=== PATIENT | male | born 1985 | race Caucasian/White ===

== ENCOUNTER 2018-12-26 19:32 | Emergency (ER) | payer BC ==
[2018-12-26] MEDS ORDERED: Amoxicillin/Clavulanate K 875-125 MG Tab PO STA (19:53)
--- NOTE | 2018-12-26 20:27 | EDM.PDOC ---
ED HPI GENERAL MEDICAL PROBLEM - General Chief Complaint: General Stated Complaint: POSSIBLE INFECTION Time Seen by Provider: 12/26/18 20:24 Source of Information: Reports: Patient History Limitations: Reports: No Limitations - History of Present Illness INITIAL COMMENTS - FREE TEXT/NARRATIVE: 33 y.o.w.m was see in the clinic today where he had a surgical procedure -boil lanced-at his left 2nd and 3rd finger. He was given Bactrim DS in order to cover MRSA. Pt noticed this pm. his left hand is swollen and a red streak is going up his right arm. FROM of left wrist arm, no Trauma. No N/V/D no SOB or any other acute med issues. BP 129/80 RR 18 Pulse ox 100% on RA Pulse 82 temp 36.8 Onset Date: 12/26/18 Onset Time: 07:00 Duration: Hour(s):, Getting Worse Location: Reports: Upper Extremity, Right Quality: Reports: Dull Severity: Mild Improves with: Reports: Medication Worsens with: Reports: Movement Context: Reports: Other (surgical procedure right hand this am) Associated Symptoms: Reports: Rash (right forearm) Right index finger Pain Score (Numeric/FACES): 4 - Related Data Allergies Allergy/AdvReac Type Severity Reaction Status Date / Time Latex, Natural Rubber Allergy Swelling Verified 12/26/18 19:42 Home Meds: Home Meds Amoxicillin/Potassium Clav [Augmentin 875-125 Tablet] 1 each PO BID #20 tablet 12/26/18 [Rx] Fluticasone/Salmeterol [Advair 250-50 Diskus] 1 puff INH ASDIRECTED 12/26/18 [ History] Sulfamethoxazole/Trimethoprim [Bactrim Ds Tablet] 1 each PO BID 12/26/18 [ History] Past Medical History Psychiatric History: Reports: Anxiety, Depression - Past Surgical History Male Surgical History: Reports: Mastectomy Social & Family History - Tobacco Use Smoking Status *Q: Never Smoker - Caffeine Use Caffeine Use: Reports: Energy Drinks - Recreational Drug Use Recreational Drug Use: No ED ROS GENERAL - Review of Systems Review Of Systems: See Below Constitutional: Reports: No Symptoms HEENT: Reports: No Symptoms Respiratory: Reports: No Symptoms Cardiovascular: Reports: No Symptoms Endocrine: Reports: No Symptoms GI/Abdominal: Reports: No Symptoms : Reports: No Symptoms Musculoskeletal: Reports: No Symptoms Skin: Reports: Rash (right forearm) Neurological: Reports: No Symptoms Psychiatric: Reports: No Symptoms Hematologic/Lymphatic: Reports: No Symptoms Immunologic: Reports: No Symptoms ED EXAM, GENERAL - Physical Exam Exam: See Below Exam Limited By: No Limitations General Appearance: Alert, WD/WN, Mild Distress Eye Exam: Bilateral Eye: Normal Inspection Ears: Normal External Exam Ear Exam: Bilateral Ear: Auricle Normal Nose: Normal Inspection, Normal Mucosa, No Blood Throat/Mouth: Normal Inspection, Normal Lips, Normal Teeth, Normal Voice, No Airway Compromise Head: Atraumatic, Normocephalic Neck: Normal Inspection, Supple, Non-Tender, Full Range of Motion Respiratory/Chest: No Respiratory Distress, Lungs Clear, Normal Breath Sounds, No Accessory Muscle Use, Chest Non-Tender Cardiovascular: Normal Peripheral Pulses, Regular Rate, Rhythm, No Edema, No Gallop, No JVD, No Murmur, No Rub Peripheral Pulses: 1+: Carotid (R) GI/Abdominal: Normal Bowel Sounds, Soft, Non-Tender, No Organomegaly, No Abnormal Bruit, No Mass, Pelvis Stable (Male) Exam: Deferred Rectal (Males) Exam: Deferred Back Exam: Normal Inspection, Full Range of Motion Extremities: Normal Range of Motion Neurological: Alert, Oriented, CN II-XII Intact, Normal Cognition Psychiatric: Normal Affect, Normal Mood Skin Exam: Warm, Dry, Rash (right forearm) Lymphatic: No Adenopathy Course - Vital Signs Text/Narrative:: 33 y.o.w.m was see in the clinic today where he had a surgical procedure -boil lanced-at his left 2nd and 3rd finger. He was given Bactrim DS in order to cover MRSA. Pt noticed this pm. his left hand is swollen and a red streak is going up his right arm. FROM of left wrist arm, no Trauma. No N/V/D no SOB or any other acute med issues. BP 129/80 RR 18 Pulse ox 100% on RA Pulse 82 temp 36.8 PE: WNWD W M with a read streak going up his right forearm Labs: CBC, BMP all nl. Blood Cx results are pending Imaging: Not indicated Impression: Left arm cellulitis Tx: Augmentin po Reexam: Improved Plan: D/C with instructions Last Recorded V/S: Last Vital Signs Temp 36.7 C 12/26/18 20:30 Pulse 87 12/26/18 20:30 Resp 18 12/26/18 20:30 BP 132/88 12/26/18 20:30 Pulse Ox 95 12/26/18 20:30 - Orders/Labs/Meds Orders: Active Orders 24 hr Category Date Time Status CULTURE BLOOD [BC] Urgent Lab 12/26/18 20:11 Received CULTURE BLOOD [BC] Urgent Lab 12/26/18 20:19 Received Blood Culture x2 Reflex Set [OM.PC] Urgent Oth 12/26/18 19:52 Ordered Labs: Laboratory Tests 12/26/18 12/26/18 Range/Units 20:11 20:11 WBC 11.5 (4.5-12.0) X10-3/uL RBC 5.26 (4.30-5.75) x10(6)uL Hgb 16.1 (13.5-17.8) g/dL Hct 47.0 (30.0-51.3) % MCV 89.3 (80-96) fL MCH 30.7 (27.7-33.6) pg MCHC 34.3 (32.2-35.4) g/dL RDW 12.7 (11.5-15.5) % Plt Count 295 (125-369) X10(3)uL MPV 8.0 (7.4-10.4) fL Neut % (Auto) 73.5 (46-82) % Lymph % (Auto) 16.4 (13-37) % [place] % (Auto) 7.2 (4-12) % Eos % (Auto) 2 (1.0-5.0) % Baso % (Auto) 1 (0-2) % Neut # (Auto) 8.5 H (1.6-8.3) # Lymph # (Auto) 1.9 (0.6-5.0) # [place] # (Auto) 0.8 (0.0-1.3) # Eos # (Auto) 0.2 (0.0-0.8) # Baso # (Auto) 0.1 (0.0-0.2) # Sodium 139 (135-145) mmol/L Potassium 3.6 (3.5-5.3) mmol/L Chloride 103 (100-110) mmol/L Carbon Dioxide 28 (21-32) mmol/L BUN 9 (7-18) mg/dL Creatinine 1.0 (0.70-1.30) mg/dL Est Cr Clr Drug Dosing 107.03 mL/min Estimated GFR (MDRD) > 60 (>60) BUN/Creatinine Ratio 9.0 (9-20) Glucose 105 (80-116) mg/dL Calcium 8.9 (8.6-10.2) mg/dL Meds: Medications Discontinued Medications Generic Name Dose Route Start Last Admin Trade Name Graciela PRN Reason Stop Dose Admin Amoxicillin/Clavulanate Potassium 1 tab 12/26/18 19:53 12/26/18 20:04 Augmentin 875 Mg/125 Mg PO 12/26/18 19:54 1 tab ONETIME STA Administration Departure - Departure Time of Disposition: 20:25 Disposition: Home, Self-Care 01 Condition: Good Clinical Impression: Cellulitis Qualifiers: Site of cellulitis of extremity: upper extremity Laterality: right - Discharge Information Prescriptions: Amoxicillin/Potassium Clav [Augmentin 875-125 Tablet] 1 each PO BID #20 tablet Instructions: Cellulitis, Adult, [id number] Referrals: Patricia Palm PA-C [Primary Care Provider] - Forms: ED Department Discharge Additional Instructions: Please cont the Bactrim DS Abx, take Augmentin in addition as prescribed, please f/u, come back if your symptoms get worse acutely. - My Orders Last 24 Hours: My Active Orders 12/26/18 19:52 Blood Culture x2 Reflex Set [OM.PC] Urgent 12/26/18 20:11 CULTURE BLOOD [BC] Urgent 12/26/18 20:19 CULTURE BLOOD [BC] Urgent - Assessment/Plan Last 24 Hours: My Active Orders 12/26/18 19:52 Blood Culture x2 Reflex Set [OM.PC] Urgent 12/26/18 20:11 CULTURE BLOOD [BC] Urgent 12/26/18 20:19 CULTURE BLOOD [BC] Urgent
== END 2018-12-26 20:32 | disposition home or self-care (01) ==
LOC: FB.ED 19:32
DX: L03.113 Cellulitis of right upper limb (principal); Z91.040 Latex allergy status
CPT/HCPCS: 36415; 80048; 85025; 87040; 99283; A9270

== ENCOUNTER 2019-03-22 00:45 | Emergency (ER) | payer BC ==
[2019-03-22] MEDS ORDERED: Acetaminophen/HYDROcodone 325-5 MG Tab PO ONE (00:46)
[2019-03-22] MEDS ORDERED: Cyclobenzaprine 10 MG Tab PO ONE (00:46)
--- NOTE | 2019-03-22 01:01 | EDM.PDOC ---
ED HPI GENERAL MEDICAL PROBLEM - General Stated Complaint: BACK PAIN Time Seen by Provider: 03/22/19 01:00 Source of Information: Reports: Patient History Limitations: Reports: No Limitations - History of Present Illness INITIAL COMMENTS - FREE TEXT/NARRATIVE: 33-year-old male with intermittent problems with left sided lumbar radiculopathy for the past 2-3 years. He has had intermittent mild exacerbations of this over the past 2-3 years and has done physical therapy and chiropractic cares for this with good results. He had an exacerbation of this radiculopathy in the beginning of January 2019 and had another exacerbation around . For the past 2 weeks he has been doing chiropractic cares and physical therapy with good progress and control of his pain. However, over the past 3 days he has had a worsening of this pain. There was really no inciting event other than he turned over in bed and it seemed to worsen after this. The pain is a tingling numb pain was sharp and shooting pains down his entire left leg. He currently rates the pain as an 8-10/10. He has been unable to find a comfortable position or rest secondary to the pain. He has been taking ibuprofen and Tylenol for the pain without relief. He has tried stretching without relief. He also feels a tightness in his lower back where the pain seems to emanate go down his leg. He has had no fevers or chills. He has had no bowel or bladder control problems. He reports that he feels that his left leg is intermittently weak. He has no abdominal pain. He did have some nausea associated with the pain earlier but no vomiting. There are no other associated signs or symptoms. There are no other modifying factors. Onset: Other (Problems for some time worsening over the past 5 days.) Duration: Getting Worse Location: Reports: Back, Lower Extremity, Left Quality: Reports: Burning, Sharp, Other (Tingling) Severity: Severe Improves with: Reports: None Worsens with: Reports: Other (Straight leg raising), Movement Context: Reports: Other (As above) Associated Symptoms: Reports: No Other Symptoms (Except as above) Treatments GAMING DEPARTMENT HEAD: Reports: Acetaminophen, NSAIDS - Related Data Allergies Allergy/AdvReac Type Severity Reaction Status Date / Time Latex, Natural Rubber Allergy Swelling Verified 03/22/19 01:16 Home Meds: Home Meds Amoxicillin/Potassium Clav [Augmentin 875-125 Tablet] 1 each PO BID #20 tablet 12/26/18 [Rx] Fluticasone/Salmeterol [Advair 250-50 Diskus] 1 puff INH ASDIRECTED 12/26/18 [ History] Sulfamethoxazole/Trimethoprim [Bactrim Ds Tablet] 1 each PO BID 12/26/18 [ History] Albuterol Sulfate [Proair Hfa] 03/22/19 [History] Cyclobenzaprine HCl 03/22/19 [History] FLUoxetine HCl [Fluoxetine HCl] 03/22/19 [History] Fluticasone/Salmeterol [Advair 250-50 Diskus] 03/22/19 [History] Hydrocodone/Acetaminophen [Earle 5-325 Tablet] 1 - 2 tab PO Q6H PRN #6 tablet [Rx] methylPREDNISolone [Medrol Dose Pack] 4 mg PO ASDIRECTED #1 dospk 03/22/19 [Rx] traZODone HCl [Trazodone HCl] 100 mg PO BEDTIME 03/22/19 [History] Past Medical History Musculoskeletal History: Reports: Back Pain, Chronic Neurological History: Reports: Other (See Below) (Left lumbar radiculopathy) Psychiatric History: Reports: Anxiety, Depression - Past Surgical History Male Surgical History: Reports: Mastectomy (Bilateral for gynecomastia) Social & Family History - Tobacco Use Smoking Status *Q: Unknown Ever Smoked (Unknown) - Caffeine Use Caffeine Use: Reports: Energy Drinks - Alcohol Use Alcohol Use History: Yes Alcohol Use Frequency: Weekly - Living Situation & Occupation Occupation: Employed ED ROS GENERAL - Review of Systems Review Of Systems: See Below Constitutional: Reports: No Symptoms HEENT: Reports: No Symptoms Respiratory: Reports: No Symptoms Cardiovascular: Reports: No Symptoms Endocrine: Reports: No Symptoms GI/Abdominal: Reports: Nausea (With the pain) : Reports: No Symptoms Musculoskeletal: Reports: Back Pain, Leg Pain Skin: Reports: No Symptoms Neurological: Reports: Other (Left lumbar radiculopathy) Hematologic/Lymphatic: Reports: No Symptoms Immunologic: Reports: No Symptoms ED EXAM,LOWER BACK PAIN/INJURY - Physical Exam Exam: See Below Exam Limited By: No Limitations General Appearance: Alert, WD/WN, Moderate Distress Eye Exam: Bilateral Eye: EOMI, Normal Inspection, PERRL Ears: Normal External Exam, Hearing Grossly Normal Nose: Normal Inspection, Normal Mucosa, No Blood Throat/Mouth: Normal Inspection, Normal Lips, Normal Oropharynx, Normal Voice, No Airway Compromise Head: Atraumatic, Normocephalic Neck: Normal Inspection, Supple, Non-Tender, Full Range of Motion Respiratory/Chest: No Respiratory Distress, Lungs Clear, Normal Breath Sounds, No Accessory Muscle Use, Chest Non-Tender Cardiovascular: Normal Peripheral Pulses, Regular Rate, Rhythm, No Murmur GI/Abdominal: Normal Bowel Sounds, Soft, Non-Tender, No Mass Back Exam: Muscle Spasm (Left lower back), Paraspinal Tenderness Extremities: Normal Inspection, Normal Range of Motion, Non-Tender, No Pedal Edema, Normal Capillary Refill Neurological: Alert, Normal Dorsiflexion, CN II-XII Intact, Normal Plantar Flexion, No Motor/Sensory Deficits, Oriented x 3, Straight Leg Raise (L) Skin Exam: Warm, Dry, Intact, Normal Color, No Rash Course - Orders/Labs/Meds Meds: Medications Discontinued Medications Generic Name Dose Route Start Last Admin Trade Name Graciela PRN Reason Stop Dose Admin Diazepam 5 mg 03/22/19 01:19 Valium IM 03/22/19 01:20 ONETIME ONE Ketorolac Tromethamine 60 mg 03/22/19 01:19 Toradol IM 03/22/19 01:20 ONETIME ONE Prednisone 60 mg 03/22/19 01:19 03/22/19 01:36 Prednisone PO 03/22/19 01:20 60 mg ONETIME ONE Administration - Re-Assessments/Exams Free Text/Narrative Re-Assessment/Exam: 03/22/19 01:20: Patient with exacerbation of left lumbar radiculopathy. He was given Toradol 60 mg and Valium 10 mg IM. He was also given prednisone 60 mg by mouth. He was also given a take-home packs of hydrocodone 5/325 and Flexeril 10 milligrams. I will give him a further prescription of 6 more hydrocodone and Medrol dose pack. He is to follow-up with his primary doctor in regard to this. Precautions and reasons for return to the emergency department were discussed with the patient prior to his discharge. Departure - Departure Time of Disposition: 01:30 Disposition: Home, Self-Care 01 Condition: Good Clinical Impression: Left lumbar radiculopathy, Lumbar back pain with radiculopathy affecting left lower extremity - Discharge Information Prescriptions: Hydrocodone/Acetaminophen [Earle 5-325 Tablet] 1 - 2 tab PO Q6H PRN #6 tablet PRN Reason: Moderate to severe pain methylPREDNISolone [Medrol Dose Pack] 4 mg PO ASDIRECTED #1 dospk Instructions: Back Exercises, [id number], Lumbosacral Radiculopathy Referrals: Patricia Palm PA-C [Primary Care Provider] - Additional Instructions: You appear to have a lumbar radiculopathy or pain in your back and down your left leg related to a herniated disc in your lower back disc with compression on a nerve going down your left leg. Avoid any strenuous activity. Ambulate as tolerated. You may continue to take ibuprofen 600-800 mg by mouth every 6-8 hours as needed for pain. Medication as prescribed (hydrocodone 5/325, Flexeril 10 mg, Medrol Dosepak). Follow-up with your primary provider this week as you most probably will need further outpatient testing through your primary provider. Back to the emergency department for inability to urinate, bowel control problems, leg weakness, fever or any other concerning sign or symptom. Sepsis Event Note - Focused Exam Date Exam was Performed: 03/22/19 Time Exam was Performed: 01:38
[2019-03-22] MEDS ORDERED: Ketorolac 60 MG/2 ML SDV IM ONE (01:19)
[2019-03-22] MEDS ORDERED: predniSONE 20 MG Tab PO ONE (01:19)
== END 2019-03-22 01:55 | disposition home or self-care (01) ==
LOC: FB.ED 00:45
DX: M54.16 Radiculopathy, lumbar region (principal); Z91.040 Latex allergy status; Z79.899 Other long term (current) drug therapy
CPT/HCPCS: 96372; 99283; A9270-GY; J1885; J3360